=== PATIENT | male | born 1975 | race Caucasian/White ===

== ENCOUNTER 2023-06-01 10:54 | Emergency (ER) | payer OTHER, SELFPAY ==
[2023-06-01 11:19] VITALS: BP 155/96; PULSE 116; RESP 19; TEMP 37.2; O2SAT 100; BMI 22.8
--- NOTE | 2023-06-01 11:19 | ED.SKABFB ---
HPI - Skin/Abscess/Foreign Bdy General Chief complaint: General Medical Stated complaint: Bugs under skin? Time Seen by Provider: 06/01/23 13:58 Source: patient Mode of arrival: ambulatory Limitations: no limitations History of Present Illness HPI narrative: 48-year-old male with a past medical history of IV drug use presents emergency department with complaints of ?bugs in his skin?. He states he has had symptoms bugs crawling out of his skin for the past several months and states that he has been ?picking them out?. He reports that he uses IV heroin in that he does not share his needles, however; he states that he does not use a clean needle every time. He reports he has been using for quite some time from the same dealer ?nothing has changed?. He states that the only change he is noted is that his mother planted a flower garden and he believes that the bugs are entering his home due to the barry. He states that his mother has not noted any bug bites or rashes. He states that he has used several [id number] products to try and fix his bug problem with no relief. Pertinent positives and negatives discussed in HPI Related Data Previous Rx's Medication Instructions Recorded permethrin 5 % topical cream 1 appl topical Q14D 2 doses #60 06/01/23 grams Allergies Allergy/AdvReac Type Severity Reaction Status Date / Time No Known Allergies Allergy Verified 06/01/23 12:39 Review of Systems Review of Systems: Yes all other systems are reviewed and are negative [facility] Social History Social History Advance Directives: No Physical Exam Vital Signs: Vital Signs: Last Vital Signs Temp 98.9 F 06/01/23 11:19 Pulse 116 H 06/01/23 11:19 Resp 19 06/01/23 11:19 BP 155/96 H 06/01/23 11:19 Pulse Ox 100 06/01/23 11:19 O2 Del Method Room Air 06/01/23 11:19 BMI result Body Mass Index 22.8 Nursing notes and vital signs reviewed. GENERAL APPEARANCE: A&0 x 4, generally well appearing, no acute distress HENMT: Normal to inspection, atraumatic, face symmetrical. Normal external ears, nose, and oropharynx clear. EYE: PERRLA, EOM intact, structures appear normal NECK: Supple without stiffness or restricted ROM. HEART: Normal rate and regular rhythm, normal S1/S2, no M/R/G LUNGS: LS CTA, moving air well. Able to speak in complete sentences. No crackles, wheezes, or rhonchi auscultated BACK: No CVAT, no obvious deformity EXTREMITIES: Moving all extremities without difficulty. Normal capillary refill. NEUROLOGICAL: Alert and oriented, moving all 4 extremities with equal strength. CN not formally tested but appearing grossly intact. Observed to ambulate with normal gait. Cognition normal SKIN: Warm and dry. Lesions noted on bilateral hands, arms, and legs. Course Course Course Narrative: RME:?48 yo male here for eval of bugs under my skin to entire body x months. currently living at his moms house. his mom does not have the same symptoms. admits to opiate abuse. no ivdu. reports picking at skin and using OTC ointment without relief. skin with multiple pick hung and excoriations. no rash noted to webbed spaces, palms or soles. no mucous membrane involvement. basic labs ordered. Full HPI, ROS and PE to be performed by the primary ED provider. Medical Decision Making Medical Decision Making MDM Narrative: Old records reviewed for previous imaging, lab studies, ECGs, and notes. Patient was assessed the emergency department with no acute distress or toxicity noted. Lesions/rash noted across bilateral hands, arms, ankles, and legs. Patient reports that he believes that there bugs falling off of him at this time. I do not see any evidence of insects during my physical exam. There is no evidence cellulitis or active infection. Patient's symptoms may be related to IV drug use, delusional parasitosis, Morgellons disease, or scabies and permethrin cream was sent to patient's preferred pharmacy for further management if this is indeed scabies although there is a low suspicion. Detox offered and declined by patient. Patient educated that symptoms may be related to his IV drug use, however; he states he does not believe this is the case. Patient is safe for discharge at this time with plan for [id number] Tylenol and/or NSAID such as ibuprofen or naproxen for fever/discomfort with dosing as per packaging. HPI, PE, diagnostics, and plan discussed with patient and family with no unanswered questions at this time. Strict return precautions given to return to the emergency department with new, worsening, or concerning emergent symptoms. Recommended to follow-up with there primary care provider in 24-48 hours for further treatment and management. Differential Diagnosis Differential Diagnoses: The differential diagnosis associated with the presentation includes But not limited to IV drug use, delusional parasitosis, Morgellons disease, or scabies, cellulitis, sepsis, malignancy Discharge Plan Discharge Clinical Impression: Rash and nonspecific skin eruption Patient Disposition: Home, Self-Care Instructions: Contact Dermatitis (ED) Prescriptions: New permethrin 5 % cream 1 appl topical Q14D Qty: 60 0RF Rx Instructions: apply second treatment 14 days after first treatment if live lice remain Referrals: [facility] [place] [facility] [place]Provider Group] [facility] [place] [facility] [place] [Provider Group] [facility] [place] [facility] [Provider Group] Emmett Stewart MD [Physician] - Louis Talbot MD [Physician] - Print Language: Welsh
--- NOTE | 2023-06-01 12:57 | MHC.EDTECH ---
This pct attempted to draw labs on patient and once needle is inserted theres alot of resistance.
[2023-06-01 16:13] VITALS: BP 155/96; PULSE 116; RESP 19; TEMP 37.2; O2SAT 100
== END 2023-06-01 16:14 | disposition home or self-care (01) ==
PROVIDERS: Emergency Provider Emergency Medicine
DX: R21 Rash and other nonspecific skin eruption (principal); F11.10 Opioid abuse, uncomplicated
CPT/HCPCS: 99282